=== PATIENT | female | born 1980 | race Caucasian/White ===

== ENCOUNTER 2019-09-03 12:36 | Emergency (ER) | payer OTHER ==
[~2019-09-03] VITALS: Ht 154.9 cm; Wt 49.9 kg
[2019-09-03 13:34] LABS: BASOPHILS # (AUTO) 0.1 (0.0-0.1); BASOPHILS % 0.8 % (0.0-1.0); EOSINOPHILS # (AUTO) 0.1 (0.0-0.4); HEMATOCRIT 39.1 % (34.2-44.1); HEMOGLOBIN 13.1 g/dL (12.0-16.0); LYMPHOCYTES # (AUTO) 2.8 (1.0-3.2); LYMPHOCYTES % 31.9 % (18.0-39.1); MEAN CORPUSCULAR HGB CONC 33.5 g/dL (31-35); MEAN CORPUSCULAR VOLUME 86.5 fL (81-99); MONOCYTES # (AUTO) 0.6 (0.2-0.8); MONOCYTES % 6.5 % (4.4-11.3); NEUTROPHILS # (AUTO) 5.2 (2.1-6.9); NEUTROPHILS % 59.2 % (38.7-80.0); PLATELET COUNT 276 x10e3/uL (140-360); RED BLOOD COUNT 4.52 x10e6/uL (3.6-5.1)
[2019-09-03 14:08] LABS: ALANINE AMINOTRANSFERASE 8 IU/L (0-55); ALBUMIN 4.3 g/dL (3.5-5.0); ALBUMIN/GLOBULIN RATIO 1.2 (0.8-2.0); ALKALINE PHOSPHATASE 73 IU/L (40-150); ANION GAP 14.4 mmol/L (8-16); BLOOD UREA NITROGEN 15 mg/dL (7-26); BUN/CREATININE RATIO 19 (6-25); CALCIUM 9.8 mg/dL (8.4-10.2); CARBON DIOXIDE 22 mmol/L (22-29); CHLORIDE 106 mmol/L (98-107); CREATINE KINASE 42 IU/L (29-168); CREATININE, SERUM 0.77 mg/dL (0.57-1.11); EST GLOMERULAR FILTRATION RATE > 60 ML/MIN (60-); GLUCOSE 89 mg/dL (74-118); SODIUM 138 mmol/L (136-145)
[2019-09-03 14:10] LABS: POTASSIUM 4.4 mmol/L (3.5-5.1)
--- NOTE | 2019-09-03 14:32 | Diagnostic Imaging Report ---
EXAM: ABDOMEN-1VIEW (KUB), CHEST SINGLE (PORTABLE) DATE: 09/03/2019 1:50 PM INDICATION: Abdominal pacemaker malfunction COMPARISON: None FINDINGS: The trachea is midline. The lungs are symmetrically expanded without evidence for large focal consolidation, pneumothorax, or significant pleural effusion. The cardiomediastinal silhouette appears magnified by technique but otherwise unremarkable. The pulmonary vasculature is not engorged. Abdominal pacing device identified with leads terminating within the mid upper abdomen. Cholecystectomy clips noted within the right upper quadrant. Additional surgical clips noted projecting over the mid upper abdomen and right lower quadrant. Bowel gas pattern appears nonspecific but nonobstructive. No pathologically dilated loops of bowel are identified. No intraperitoneal free air is appreciated on this supine view examination. No abnormal intra-abdominal calcification is identified. No acute osseous abnormalities identified. IMPRESSION: No acute cardiopulmonary process identified. No acute radiographic abnormality identified within the abdomen. Signed by: Dr. Bishnu Badillo MD on 09/03/2019 2:29 PM
--- NOTE | 2019-09-03 14:43 | Emergency Department Note ---
History of Present Illnes History of Present Illness Chief Complaint: Chest Pain History of Present Illness This is a 38 year old female arrived to the ED with complaints of pain over her abdomen, patient states patient was placed year ago pain has just started over the last 3 days. Chief Complaint Comment PATIENT IN FROM HOME WITH COMPLAINTS OF ABDOMINAL PAIN X 3 DAYS; HAS AN ABDOMINAL PACEMAKER TO HELP HER BOWELS CONTRACT - STATES WAS PLACED APPROX 1 YEAR AGO. PATIENT RATES PAIN 10/10, APPEARS IN NO DISTRESS, RESP EVEN AND NONLABORED, AMBULATORY WITHOUT ASSISTANCE Historian: Patient, Family Member Arrival Mode: Car Severity: moderate Duration (how long): day(s) Progression: worsening Chronicity: new Treatments prior to arrival: none Past Medical/Family History Physician Review I have reviewed the patient's past medical and family history. Any updates have been documented here. Past Medical History Recent Fever: No Clinical Suspicion of Infectio: No New/Unexplained Change in Ment: No Past Medical History: Asthma, Anxiety, Depression, GERD, Hyperlipedemia Past Surgical History: Cholecysctectomy, Hysterectomy Other Surgery: ABDOMINAL PACEMAKER FOR BOWELS Family History Family history of heart diseas: No Other Last Tetanus: UNKNOWN Review of Systems Review of Systems Constitutional: Reports no symptoms EENTM: Reports no symptoms Cardiovascular: Reports no symptoms Respiratory: Reports no symptoms Gastrointestinal: Reports abdominal pain Genitourinary: Reports no symptoms Musculoskeletal: Reports no symptoms Integumentary: Reports no symptoms Neurological: Reports no symptoms Psychological: Reports no symptoms Endocrine: Reports no symptoms Hematological/Lymphatic: Reports no symptoms Review of other systems: All other systems negative Physical Exam Related Data Allergies: Coded Allergies: aspirin (Verified Allergy, Severe, 09/03/19) beclomethasone (Verified Allergy, Severe, 09/03/19) esomeprazole (Verified Allergy, Severe, 09/03/19) fluticasone (Verified Allergy, Severe, 09/03/19) latex (Verified Allergy, Severe, 09/03/19) meperidine (Verified Allergy, Severe, 09/03/19) metronidazole (Verified Allergy, Severe, 09/03/19) Triage Vital Signs Vital Signs Date Time Temp Pulse Resp B/P (MAP) Pulse Ox O2 Delivery O2 Flow Rate FiO2 09/03/19 12:40 97.6 82 16 105/74 99 Vital signs reviewed: Yes Physical Exam CONSTITUTIONAL Constitutional: Present well-developed, Present well-nourished HENT HENT: Present normocephalic, Present atraumatic, Present oropharynx clear/moist, Present nose normal HENT L/R: Present left ext ear normal, Present right ext ear normal EYES Eyes: Reports PERRL, Reports conjunctivae normal NECK Neck: Present ROM normal PULMONARY Pulmonary: Present effort normal, Present breath sounds normal CARDIOVASCULAR Cardiovascular: Present regular rhythm, Present heart sounds normal, Present capillary refill normal, Present normal rate GASTROINTESTINAL Abdominal: Present soft, Present bowel sounds normal, Present other (palpable pacemaker- no superimposed cellulitis or palpable abscess noted) GENITOURINARY Genitourinary: Present exam deferred SKIN Skin: Present warm, Present dry MUSCULOSKELETAL Musculoskeletal: Present ROM normal NEUROLOGICAL Neurological: Present alert, Present oriented x 3, Present no gross motor or sensory deficits PSYCHOLOGICAL Psychological: Present mood/affect normal, Present judgement normal Results Laboratory Result Diagram: 09/03/19 1326 09/03/19 1326 Laboratory Laboratory Tests Test 09/03/19 13:26 White Blood Count 8.72 x10e3/uL (4.8-10.8) Red Blood Count 4.52 x10e6/uL (3.6-5.1) Hemoglobin 13.1 g/dL (12.0-16.0) Hematocrit 39.1 % (34.2-44.1) Mean Corpuscular Volume 86.5 fL (81-99) Mean Corpuscular Hemoglobin 29.0 pg (28-32) Mean Corpuscular Hemoglobin Concent 33.5 g/dL (31-35) Red Cell Distribution Width 13.0 % (11.7-14.4) Platelet Count 276 x10e3/uL (140-360) Neutrophils (%) (Auto) 59.2 % (38.7-80.0) Lymphocytes (%) (Auto) 31.9 % (18.0-39.1) Monocytes (%) (Auto) 6.5 % (4.4-11.3) Eosinophils (%) (Auto) 1.0 % (0.0-6.0) Basophils (%) (Auto) 0.8 % (0.0-1.0) Neutrophils # (Auto) 5.2 (2.1-6.9) Lymphocytes # (Auto) 2.8 (1.0-3.2) Monocytes # (Auto) 0.6 (0.2-0.8) Eosinophils # (Auto) 0.1 (0.0-0.4) Basophils # (Auto) 0.1 (0.0-0.1) Absolute Immature Granulocyte (auto 0.05 x10e3/uL (0-0.1) Sodium Level 138 mmol/L (136-145) Potassium Level 4.4 mmol/L (3.5-5.1) Chloride Level 106 mmol/L (98-107) Carbon Dioxide Level 22 mmol/L (22-29) Anion Gap 14.4 mmol/L (8-16) Blood Urea Nitrogen 15 mg/dL (7-26) Creatinine 0.77 mg/dL (0.57-1.11) Estimat Glomerular Filtration Rate > 60 ML/MIN (60-) BUN/Creatinine Ratio 19 (6-25) Glucose Level 89 mg/dL (74-118) Calcium Level 9.8 mg/dL (8.4-10.2) Total Bilirubin 0.5 mg/dL (0.2-1.2) Aspartate Amino Transf (AST/SGOT) 13 IU/L (5-34) Alanine Aminotransferase (ALT/SGPT) 8 IU/L (0-55) Alkaline Phosphatase 73 IU/L (40-150) Creatine Kinase 42 IU/L (29-168) Creatine Kinase MB 0.30 ng/mL (0-5.0) Troponin I 0.008 ng/mL (0-0.300) Total Protein 7.9 g/dL (6.5-8.1) Albumin 4.3 g/dL (3.5-5.0) Globulin 3.6 g/dL (2.3-3.5) Albumin/Globulin Ratio 1.2 (0.8-2.0) Lab results reviewed: Yes Imaging Imaging results reviewed: Yes Imaging Comments A pacing device is identified within the right lower quadrant anterior abdominal wall with leads extending terminating anterior to the gastric body. There is no evidence for lead fracture or adjacent fluid collection. The stomach appears unremarkable. The spleen is at the upper limits of normal for size but otherwise unremarkable. The pancreas and bilateral adrenal glands demonstrate unremarkable noncontrast appearance. The kidneys are normal in size and location. A 3 mm nonobstructing stone is identified within the superior pole the left kidney. There is no evidence for hydronephrosis. No ureteral stone or dilatation is identified. The urinary bladder demonstrates no significant abnormalities. The uterus and adnexa are grossly unremarkable. Please note evaluation the bowel is limited at these of enteric contrast material. The visualized loops of small large bowel demonstrate no evidence of obstruction or inflammation. The appendix is not visualized and surgical clips are noted within the right lower quadrant which may reflect prior appendectomy. There is no ascites or intraperitoneal free air. No abnormally enlarged lymph nodes are identified within the abdomen or pelvis. The osseous structures demonstrate no evidence for acute fracture or destructive process. The extraperitoneal soft tissues are unremarkable. IMPRESSION: No acute abdominopelvic process identified. Abdominal pacing device identified within the right lower quadrant. No evidence for lead fracture, adjacent fluid collection, or other abnormality. 3 mm nonobstructive left renal stone. No evidence for hydronephrosis or obstructive uropathy. Assessment & Plan Medical Decision Making MDM 38-year-old female arrived to the ED with tenderness over her pacemaker insertion site. No superimposed cellulitis or abscess noted on exam. Patient is tender over pacemaker site placement. CT shows pacemaker in place with no lead fracture. Patient's labwork unremarkable no evidence of elevated white count noted. Patient tolerating oral intake. Patient stable for DC with outpatient gastrology follow-up. Assessment & Plan Final Impression: (1) Presence of gastric pacemaker (2) Abdominal pain Depart Disposition: HOME, SELF-CARE Last Vital Signs Date Time Temp Pulse Resp B/P (MAP) Pulse Ox O2 Delivery O2 Flow Rate FiO2 09/03/19 12:40 97.6 82 16 105/74 99 JOSE PENN DO Sep 03, 2019 14:43
--- NOTE | 2019-09-03 16:19 | Diagnostic Imaging Report ---
CT of the abdomen and pelvis, without contrast. History: Abdominal pain, abdominal pacemaker malfunction. Comparison: None available. Technique: Multidetector CT scanning of the abdomen and pelvis was performed from the level of the lung bases to the inferior pubic rami without the use of contrast material. Coronal and sagittal multiplanar reformations were obtained. RADIATION DOSE: Total DLP: 192.13 mGy*cm Dose modulation, iterative reconstruction, and/or weight based adjustment of the mA/kV was utilized to reduce the radiation dose to as low as reasonably achievable. FINDINGS: The visualized lungs are unremarkable. The imaged portion of the heart demonstrates no significant abnormalities. The liver is normal in size and attenuation on this noncontrast enhanced examination. The gallbladder is surgically absent. There is no biliary ductal dilatation. A pacing device is identified within the right lower quadrant anterior abdominal wall with leads extending terminating anterior to the gastric body. There is no evidence for lead fracture or adjacent fluid collection. The stomach appears unremarkable. The spleen is at the upper limits of normal for size but otherwise unremarkable. The pancreas and bilateral adrenal glands demonstrate unremarkable noncontrast appearance. The kidneys are normal in size and location. A 3 mm nonobstructing stone is identified within the superior pole the left kidney. There is no evidence for hydronephrosis. No ureteral stone or dilatation is identified. The urinary bladder demonstrates no significant abnormalities. The uterus and adnexa are grossly unremarkable. Please note evaluation the bowel is limited at these of enteric contrast material. The visualized loops of small large bowel demonstrate no evidence of obstruction or inflammation. The appendix is not visualized and surgical clips are noted within the right lower quadrant which may reflect prior appendectomy. There is no ascites or intraperitoneal free air. No abnormally enlarged lymph nodes are identified within the abdomen or pelvis. The osseous structures demonstrate no evidence for acute fracture or destructive process. The extraperitoneal soft tissues are unremarkable. IMPRESSION: No acute abdominopelvic process identified. Abdominal pacing device identified within the right lower quadrant. No evidence for lead fracture, adjacent fluid collection, or other abnormality. 3 mm nonobstructive left renal stone. No evidence for hydronephrosis or obstructive uropathy. Signed by: Dr. Bishnu Badillo MD on 09/03/2019 4:16 PM
== END 2019-09-03 17:40 | disposition home or self-care (01) ==
LOC: ER 12:36
DX: R10.31 Right lower quadrant pain (principal); Z96.82 Presence of neurostimulator; E78.5 Hyperlipidemia, unspecified; F41.9 Anxiety disorder, unspecified; K21.9 Gastro-esophageal reflux disease without esophagitis
CPT/HCPCS: 36415; 71045; 74018; 74176; 80053; 82550; 82553; 84484; 85025; 99284